=== PATIENT | male | born 1955 | race Caucasian/White ===

== ENCOUNTER → 2016-09-06 | Outpatient (CLI) | payer OTHER ==
[~2016-09-06] MED LIST: AMITRIPTYLINE100 MG PO; ANTIVERT; ASPIRIN E.C. 8181 MG PO; CELEBREX; CHANTIX0.5 MG PO; CLEOCIN HC150 MG/CAP PO; COUMADIN PO; COUMADIN4 MG PO; ELAVIL100 MG PO; FERROUS SU325 MG/TAB PO; FLEXERIL10 MG PO; FOLIC ACID 40400 MCG PO; LIPITOR 80MG80 MG PO; LOPRESSOR 550 MG/TAB PO; LOPRESSOR100 MG PO; NORCO 325 MG-51 TAB PO; PLAVIX 75MG TAB75 MG PO; PRINIVIL10 MG PO; PRINIVIL5 MG PO; PROTONIX 40MG T40 MG PO; ULTRAM 50MG TAB50 MG PO; UNABLE; VITAMIN C BUFF500 MG PO
== END ==
LOC: COL.RAD 09:57
DX: K76.0 Fatty (change of) liver, not elsewhere classified (principal)

== ENCOUNTER → 2018-09-21 | Outpatient (CLI) | payer OTHER | LOC: COL.RAD 12:07 | DX: Z13.89 Encounter for screening for other disorder (principal); M79.89 Other specified soft tissue disorders; M79.604 Pain in right leg ==

== ENCOUNTER → 2019-07-20 | Outpatient (CLI) | payer BC ==
[2019-07-20 10:18] LABS: ALBUMIN 4.1 gm/dL (3.5-5.0); BILIRUBIN,TOTAL 0.8 mg/dL (0.0-1.0); CALCIUM 9.3 mg/dL (8.4-10.2); CREATININE, serum 0.57 (0.66-1.25); POTASSIUM 4.2 mmol/L (3.4-5.0); TOTAL PROTEIN 7.7 gm/dL (6.4-8.2)
== END ==
LOC: COL.LAB 09:22
PROVIDERS: Internal Medicine Clinical Cardiac Electrophysiology
DX: I48.0 Paroxysmal atrial fibrillation (principal); Z79.899 Other long term (current) drug therapy

== ENCOUNTER → 2019-07-20 | Outpatient (CLI) | payer BC ==
[2019-07-20 10:05] LABS: BASO # 0.1 (0.0-0.2); EOS # 0.2 (0.0-0.7); EOS % 2.1 % (0-4.0); GRAN # 4.6 (1.4-6.5); LYMPH # 2.4 (1.2-3.4); LYMPH % 28.7 % (20.0-51.0); MEAN CELL VOLUME 94 fl (80.0-100.0); MEAN CORPUSCULAR HGB CONC 36 g/dl (33.0-37.0); MEAN PLATELET VOLUME 9.9 fl (7.4-10.4); MONO % 11.7 % (1.7-9.3); PLATELET COUNT 232 K/mm3 (130-400); RED BLOOD COUNT 5.96 M/mm3 (4.20-5.60); REDCELL DISTRIBUTION WIDTH-CV 13.1 % (11.5-14.5)
[2019-07-20 10:10] LABS: HEMATOCRIT 55.8 % (42.0-52.0); MEAN CORPUSCULAR HEMOGLOBIN 34 pg (27.0-31.0)
[2019-07-20 10:22] LABS: ALBUMIN 4.1 gm/dL (3.5-5.0); BILIRUBIN,TOTAL 0.8 mg/dL (0.0-1.0); C-REACTIVE PROTEIN 0.8 mg/dL (0.0-0.9); CALCIUM 9.2 mg/dL (8.4-10.2); CREATININE, serum 0.54 (0.66-1.25); POTASSIUM 4.2 mmol/L (3.4-5.0); TOTAL PROTEIN 7.8 gm/dL (6.4-8.2)
[2019-07-20 10:26] LABS: ERYTHROCYTE SEDIMENTATION RATE 1 mm/hr (0-30)
== END ==
LOC: COL.LAB 09:25
PROVIDERS: Emergency Medicine
DX: Z12.5 Encounter for screening for malignant neoplasm of prostate (principal); J44.9 Chronic obstructive pulmonary disease, unspecified; I10 Essential (primary) hypertension; Z79.899 Other long term (current) drug therapy; Z95.5 Presence of coronary angioplasty implant and graft; Z86.79 Personal history of other diseases of the circulatory system; F17.200 Nicotine dependence, unspecified, uncomplicated

== ENCOUNTER → 2019-09-02 | Outpatient (CLI) | payer BC | LOC: COL.RAD 06:53 | DX: K92.0 Hematemesis (principal); K76.0 Fatty (change of) liver, not elsewhere classified ==

== ENCOUNTER → 2021-10-11 | Outpatient (CLI) | payer BC ==
[2021-10-11 23:31] LABS: CORTISOL, AM (0800) 7 ug/dL (3-20)
[2021-10-16 16:39] LABS: CATECHOLAMINES-HRS COLLECTED 24 (()); URINE VOLUME 1750 (())
[2021-10-17 23:45] LABS: ADRENOCORTICOTROPIC HORMONE 17 pg/mL (5-27)
[2021-10-21 07:39] LABS: RENIN,PLASMA <0.6 ng/mL/h (())
== END ==
LOC: COL.LAB 08:40 → COL.VAS 08:40
PROVIDERS: Family Medicine
DX: I48.92 Unspecified atrial flutter (principal); I10 Essential (primary) hypertension; I48.0 Paroxysmal atrial fibrillation

== ENCOUNTER → 2022-12-05 | Outpatient (CLI) | payer BC | LOC: COL.RAD 13:01 | DX: Z12.2 Encounter for screening for malignant neoplasm of respiratory organs (principal); Z87.891 Personal history of nicotine dependence ==

== ENCOUNTER → 2023-06-03 | Outpatient (CLI) | payer BC ==
[~2023-06-03] MED LIST changes: +PERCOCET 325 MG1 TA2 PO
== END ==
LOC: MHCPAIN 08:45
DX: M16.12 Unilateral primary osteoarthritis, left hip (principal); M47.816 Spondylosis without myelopathy or radiculopathy, lumbar region; M48.062 Spinal stenosis, lumbar region with neurogenic claudication; J44.9 Chronic obstructive pulmonary disease, unspecified; F17.210 Nicotine dependence, cigarettes, uncomplicated
CPT/HCPCS: G0463

== ENCOUNTER → 2023-09-02 | Outpatient (CLI) | payer BC | LOC: COL.RAD 15:30 | DX: I65.23 Occlusion and stenosis of bilateral carotid arteries (principal) ==